=== PATIENT | male | born 1975 | race Caucasian/White ===

== ENCOUNTER 2018-04-12 06:18 | Emergency (ER) | payer MEDICAID, OTHER ==
[~2018-04-12] VITALS: Ht 182.9 cm; Wt 97.5 kg
--- NOTE | 2018-04-12 06:44 | EKG ---
[address] [address] Test Date: 2018-04-12 Test Time: 06:23:02 Pat Name: TERRI DENISE Department: Room: Gender: M [employer]: : 1975 Requested By: CHONG WATSON Order Number: [id number] Reading MD: Measurements Intervals Harper Rate: 60 P: 58 MA: 174 QRS: 16 QRSD: 94 T: 32 QT: 392 QTc: 396 Interpretive Statements SINUS RHYTHM QRS(T) CONTOUR ABNORMALITY CONSIDER INFERIOR MYOCARDIAL DAMAGE POSSIBLY ABNORMAL ECG RI6.01 Unconfirmed report No previous ECG available for comparison
[2018-04-12] MEDS ORDERED: ONDANSETRON PF 4 MG/2 ML VIAL. IV ONE (06:45)
[2018-04-12] MEDS ORDERED: LORazepam 2 MG/ML VIAL IV ONE ×2 (06:45→07:45)
[2018-04-12 06:50] LABS: BASO # 0.1 x10^3/uL (0.0-0.2); BASO % 1 % (0-3); EOS # 0.2 x10^3/uL (0.0-0.7); EOS % 3 % (0-3); HEMATOCRIT 47.7 % (39.0-53.0); HEMOGLOBIN 16.6 g/dL (13.0-17.5); LYMPH # 1.3 x10^3/uL (1.0-4.8); LYMPH % 23 % (24-48); MEAN CORPUSCULAR HEMOGLOBIN 30 pg (25-35); MEAN CORPUSCULAR HGB CONC 35 g/dL (31-37); MEAN CORPUSCULAR VOLUME 87 fL (79-100); MONO # 0.6 x10^3/uL (0.0-1.1); MONO % 11 % (0-9); NEUT # 3.6 x10^3uL (1.8-7.7); NEUT % 63 % (31-73); PLATELET COUNT 216 x10^3/uL (140-400); RED BLOOD COUNT 5.48 x10^6/uL (4.30-5.70); RED CELL DISTRIBUTION WIDTH 13.5 % (11.5-14.5); WHITE BLOOD COUNT 5.7 x10^3/uL (4.0-11.0)
[2018-04-12 06:58] LABS: ALBUMIN 3.8 g/dL (3.4-5.0); ALBUMIN/GLOBULIN RATIO 1.2 (1.0-1.7); CALCIUM 8.6 mg/dL (8.5-10.1); CREATININE 1.1 mg/dL (0.7-1.3); GFR 73.4; POTASSIUM 3.8 mmol/L (3.5-5.1); TOTAL BILIRUBIN 0.9 mg/dL (0.2-1.0); TOTAL PROTEIN 6.9 g/dL (6.4-8.2)
[2018-04-12] MEDS ORDERED: MECLIZINE 12.5 MG TABLET. PO ONE (07:15)
--- NOTE | 2018-04-12 07:37 | RAD ---
CT head without contrast PQRS statement: CT scans at this facility use dose reduction including either automated exposure control, iterative reconstructions, and /or weight based radiation dosing via mA and kV modification when appropriate to reduce radiation dose to as low as reasonably achievable. HISTORY: Dizziness, weakness, lower extremity pain. TECHNIQUE: [address] imaging skull base to vertex. FINDINGS: No intracranial hemorrhage, mass, hydrocephalus, extra-axial fluid collections or infarction. No acute ischemic change. Imaged orbits, mastoids, paranasal sinuses and bones are unremarkable. IMPRESSION: No acute intracranial CT abnormality. Electronically signed by: Kory Hamilton MD (04/12/2018 7:33 AM) [facility]
--- NOTE | 2018-04-12 08:18 | RAD ---
CHEST AP ONLY History: PCXR for chest pain, weakness, dizziness, vomiting, lower extremity pain since waking this morning. Comparison: None Cardiomediastinal silhouette: Mildly prominent in transverse diameter, although portable technique may accentuate this finding. Lungs: No focal airspace consolidation. Pleura: No evidence of pleural effusion. Pneumothorax: None visualized Support Devices: None. Impression: No acute infiltrate. Cardiomediastinal silhouette borderline widened, could be accentuated by the portable technique, versus mild cardiomegaly or pericardial effusion. Electronically signed by: Ronni Salinas MD (04/12/2018 8:14 AM) [facility]
[2018-04-12] MEDS ORDERED: LORA-254 PO (08:36)
[2018-04-12] MEDS ORDERED: ONDA4TAB7 PO (08:36)
[2018-04-12 08:56] VITALS: BP 120/74
--- NOTE | 2018-04-12 11:25 | ED.ADGEN ---
Past History Past Medical History: Depression Alcohol Use: None Drug Use: None Adult General Chief Complaint Chief Complaint Dizziness HPI HPI Patient is a 2-year-old male with cute onset dizziness described as room spinning starting shortly after waking this morning. Patient reports ataxia facets of emesis. Dizziness is worse with position change and head movement and is improved when lying supine. Denies prior history ago. No recent upper respiratory tract symptoms. No headache, neck pain, focal extremity weakness or loss of sensation. Due hearing or tinnitus. Does report some she with some chest tightness but denies chest pain, palpitations, shortness of breath fevers chills or sweats. No other acute symptoms or complaints. [] Review of Systems Review of Systems Review of symptoms as per history of present illness. All other review symptoms are negative. All other systems were reviewed and found to be within normal limits, except as documented in this note. Current Medications Current Medications Current Medications Medications (Trade) Dose Ordered Sig/Cutr Start Time Stop Time Status Last Admin Dose Admin Lorazepam (Ativan) 1 mg 1X ONCE 04/12/18 07:45 04/12/18 07:54 DC 04/12/18 08:03 1 MG Meclizine HCl (Antivert) 25 mg 1X ONCE 04/12/18 07:15 04/12/18 07:16 DC 04/12/18 07:11 25 MG Ondansetron HCl (Zofran) 4 mg 1X ONCE 04/12/18 06:45 04/12/18 06:46 DC 04/12/18 06:43 4 MG Allergies Allergies Allergies Coded Allergies Type Severity Reaction Last Updated Verified No Known Drug Allergies 04/12/18 No Physical Exam Physical Exam Constitutional: Well developed, well nourished, no acute distress, non-toxic appearance. [] HENT: Normocephalic, atraumatic, bilateral external ears normal, oropharynx moist, no oral exudates, nose normal. [] Eyes: PERRLA, EOMI, conjunctiva normal, no discharge. Horizontal nystagmus, fatigues on exam. [] Neck: Normal range of motion, no tenderness, supple, no stridor. [] Cardiovascular:Heart rate regular rhythm, no murmur [] Lungs & Thorax: Bilateral breath sounds clear to auscultation [] Abdomen: Bowel sounds normal, soft, no tenderness. [] Skin: Warm, dry. [] Back: No tenderness. [] Extremities: No tenderness. [] Neurologic: Alert and oriented X 3, normal motor function, normal sensory function, no focal deficits noted. [] Psychologic: Affect normal, judgement normal, mood normal. [] Current Patient Data Vital Signs Vital Signs Date Time Temp Pulse Resp B/P (MAP) Pulse Ox O2 Delivery O2 Flow Rate FiO2 04/12/18 08:56 66 19 120/74 (89) 96 Room Air 04/12/18 06:22 97.4 Lab Results Laboratory Tests Test 04/12/18 06:25 White Blood Count 5.7 x10^3/uL (4.0-11.0) Red Blood Count 5.48 x10^6/uL (4.30-5.70) Hemoglobin 16.6 g/dL (13.0-17.5) Hematocrit 47.7 % (39.0-53.0) Mean Corpuscular Volume 87 fL (79-100) Mean Corpuscular Hemoglobin 30 pg (25-35) Mean Corpuscular Hemoglobin Concent 35 g/dL (31-37) Red Cell Distribution Width 13.5 % (11.5-14.5) Platelet Count 216 x10^3/uL (140-400) Neutrophils (%) (Auto) 63 % (31-73) Lymphocytes (%) (Auto) 23 % (24-48) L Monocytes (%) (Auto) 11 % (0-9) H Eosinophils (%) (Auto) 3 % (0-3) Basophils (%) (Auto) 1 % (0-3) Neutrophils # (Auto) 3.6 x10^3uL (1.8-7.7) Lymphocytes # (Auto) 1.3 x10^3/uL (1.0-4.8) Monocytes # (Auto) 0.6 x10^3/uL (0.0-1.1) Eosinophils # (Auto) 0.2 x10^3/uL (0.0-0.7) Basophils # (Auto) 0.1 x10^3/uL (0.0-0.2) Sodium Level 144 mmol/L (136-145) Potassium Level 3.8 mmol/L (3.5-5.1) Chloride Level 106 mmol/L (98-107) Carbon Dioxide Level 28 mmol/L (21-32) Anion Gap 10 (6-14) Blood Urea Nitrogen 13 mg/dL (8-26) Creatinine 1.1 mg/dL (0.7-1.3) Estimated GFR (Cockcroft-Gault) 73.4 BUN/Creatinine Ratio 12 (6-20) Glucose Level 123 mg/dL (70-99) H Calcium Level 8.6 mg/dL (8.5-10.1) Total Bilirubin 0.9 mg/dL (0.2-1.0) Aspartate Amino Transferase (AST) 21 U/L (15-37) Alanine Aminotransferase (ALT) 31 U/L (16-63) Alkaline Phosphatase 48 U/L (46-116) Troponin I Quantitative < 0.017 ng/mL (0-0.055) Total Protein 6.9 g/dL (6.4-8.2) Albumin 3.8 g/dL (3.4-5.0) Albumin/Globulin Ratio 1.2 (1.0-1.7) EKG EKG [EKG reviewed] Radiology/Procedures Radiology/Procedures [CT Head: No acute disease per radiology report] Course & Med Decision Making Course & Med Decision Making Pertinent Labs and Imaging studies reviewed. (See chart for details) [Repeat Ativan, meclizine, Zofran given with significant symptomatic improvement. Patient's workup is negative. Symptoms consistent with peripheral vertigo. He feels is comfortable returning home.] Final Impression Final Impression [1. Vertigo] Dragon Disclaimer Dragon Disclaimer This electronic medical record was generated, in whole or in part, using a voice recognition dictation system. CHONG WATSON DO Apr 12, 2018 11:25
== END 2018-04-12 08:50 | disposition home or self-care (01) ==
LOC: ER 06:18
DX: R42 Dizziness and giddiness (principal); R11.11 Vomiting without nausea; F32.9 Major depressive disorder, single episode, unspecified
CPT/HCPCS: 36415; 70450; 71045; 80053; 84484; 85025; 93005; 96374; 96375; 96376; 99284; J2060; J2405; J8597

== ENCOUNTER 2018-06-24 13:00 | Emergency (ER) | payer OTHER ==
[~2018-06-24] VITALS: Ht 182.9 cm; Wt 101.0 kg
[~2018-06-24 13:00] MED LIST: LORA-254 PO; ONDA4TAB7 PO
[2018-06-24 13:09] VITALS: BP 141/88
[2018-06-24] MEDS ORDERED: ERYT1OIN6 OP (14:03)
[2018-06-24] MEDS ORDERED: AMOX500T PO (14:03)
[2018-06-24] MEDS ORDERED: TRAM50TA PO (14:03)
[2018-06-24] MEDS ORDERED: HYDR25TA PO (14:03)
--- NOTE | 2018-06-24 14:03 | PHYS DOC ---
Past History Past Medical History: Depression Past Surgical History: No Surgical History Alcohol Use: None Drug Use: None Adult General Chief Complaint Chief Complaint: EYE PROBLEMS HPI HPI Patient is a 42-year-old male presents with left ear and jaw pain for the past 10 days, and left greater than right irritation that his been getting worse over the past 5 days. Patient denies any change in vision. Denies any drainage from the eye. Denies any nausea, vomiting, diarrhea. Denies any drainage from the ear. No significant relief with Benadryl.[] Review of Systems Review of Systems Constitutional: Denies fever or chills [] Eyes: See history of present illness[] HENT: Denies nasal congestion or sore throat [] Respiratory: Denies cough or shortness of breath [] Cardiovascular: No chest pain or palpitations[] GI: Denies abdominal pain, nausea, vomiting, bloody stools or diarrhea [] : Denies dysuria or hematuria [] Musculoskeletal: Denies back pain or joint pain [] Integument: Denies rash or skin lesions [] Neurologic: Denies headache, focal weakness or sensory changes [] Endocrine: Denies polyuria or polydipsia [] All other systems were reviewed and found to be within normal limits, except as documented in this note. Allergies Allergies Allergies Coded Allergies Type Severity Reaction Last Updated Verified No Known Drug Allergies 04/12/18 No Physical Exam Physical Exam Constitutional: Well developed, well nourished, no acute distress, non-toxic appearance. [] HENT: Normocephalic, atraumatic, bilateral external ears normal, left TM has decreased movement with insufflation, oropharynx moist, no oral exudates, nose normal. [] Eyes: PERRLA, EOMI, conjunctiva injected on the left greater than the right with limbic sparing, no discharge. Normal fundus, visual acuity performed with bedside card was 20/20 OS, 20/20 OD, 20/20 both eyes [] Neck: Normal range of motion, no tenderness, supple, no stridor. No cervical lymphadenopathy[] Cardiovascular:Heart rate regular rhythm, no murmur [] Lungs & Thorax: Bilateral breath sounds clear to auscultation [] Abdomen: Bowel sounds normal, soft, no tenderness, no masses, no pulsatile masses. No hepato-or splenomegaly [] Skin: Warm, dry, no erythema, no rash. [] Back: No tenderness, no CVA tenderness. [] Extremities: No tenderness, no cyanosis, no clubbing, ROM intact, no edema. [] Neurologic: Alert and oriented X 3, normal motor function, normal sensory function, no focal deficits noted. [] Psychologic: Affect normal, judgement normal, mood normal. [] Current Patient Data Vital Signs Vital Signs Date Time Temp Pulse Resp B/P (MAP) Pulse Ox O2 Delivery O2 Flow Rate FiO2 06/24/18 13:09 98.6 63 18 100 Room Air EKG EKG [] Radiology/Procedures Radiology/Procedures [] Course & Med Decision Making Course & Med Decision Making Pertinent Labs and Imaging studies reviewed. (See chart for details) [place] decision making: No evidence of meningitis, encephalitis, mastoiditis, no angle closure glaucoma, no hordeolum, no acute visual changes.[] Dragon Disclaimer Dragon Disclaimer This electronic medical record was generated, in whole or in part, using a voice recognition dictation system. Departure Departure: Impression: Primary Impression: Left otitis media Additional Impression: Conjunctivitis Disposition: 01 HOME, SELF-CARE Condition: IMPROVED Referrals: PCP,UNKNOWN (PCP) Patient Instructions: Conjunctivitis (Viral and Bacterial), Otitis Media, Adult Additional Instructions: Follow-up with your regular doctor in 2 days. If you do not have regular doctor list of local clinics will be provided for you. Return to the ER if worsening pain, difficulty seeing, or any other concerns. Scripts Tramadol Hcl (TRAMADOL HCL) 50 Mg Tablet 50 MG PO PRN Q6HRS PRN for PAIN, #20 TAB Prov: OLIMPIA BRITT DO 06/24/18 Erythromycin Base (Erythromycin) 1 Gm Oint...g. 1 APPLIC OP Q4HRS W/A for conjunctivitis for 5 Days, MISC Prov: OLIMPIA BRITT DO 06/24/18 Hydroxyzine Hcl (HYDROXYZINE HCL) 25 Mg Tablet 1 TAB PO TID for allergic reaction, #30 TAB Prov: OLIMPIA BRITT DO 06/24/18 Amoxicillin (AMOXICILLIN) 500 Mg Tablet 1 TAB PO TID for otitis media, #30 TAB Prov: OLIMPIA BRITT DO 06/24/18 Problem Qualifiers Primary Impression: Left otitis media Otitis media type: unspecified Qualified Codes: H66.92 - Otitis media, unspecified, left ear Additional Impression: Conjunctivitis Conjunctivitis type: unspecified Laterality: bilateral Qualified Codes: H10.9 - Unspecified conjunctivitis OLIMPIA BRITT DO Jun 24, 2018 14:03
== END 2018-06-24 14:18 | disposition home or self-care (01) ==
LOC: ER 13:00
DX: H66.92 Otitis media, unspecified, left ear (principal); H10.9 Unspecified conjunctivitis; F32.9 Major depressive disorder, single episode, unspecified
CPT/HCPCS: 99283

== ENCOUNTER 2018-07-06 09:41 | Emergency (ER) | payer OTHER ==
[~2018-07-06] VITALS: Ht 180.3 cm; Wt 88.5 kg
[~2018-07-06 09:41] MED LIST changes: +AMOX500T PO; +ERYT1OIN6 OP; +HYDR25TA PO; +TRAM50TA PO
[2018-07-06] MEDS: IV NORMAL SALINE 1,000ML 1,000 ML IV ONE (10:05)
[2018-07-06] MEDS: ONDANSETRON PF 4 MG/2 ML VIAL. IV ONE (10:06)
[2018-07-06 10:09] LABS: BASO % 0 % (0-3); EOS # 0.4 x10^3/uL (0.0-0.7); EOS % 5 % (0-3); HEMATOCRIT 46.1 % (39.0-53.0); HEMOGLOBIN 15.8 g/dL (13.0-17.5); LYMPH # 1.1 x10^3/uL (1.0-4.8); LYMPH % 12 % (24-48); MEAN CORPUSCULAR HEMOGLOBIN 30 pg (25-35); MEAN CORPUSCULAR HGB CONC 34 g/dL (31-37); MEAN CORPUSCULAR VOLUME 88 fL (79-100); MONO # 0.8 x10^3/uL (0.0-1.1); MONO % 9 % (0-9); NEUT # 6.8 x10^3uL (1.8-7.7); NEUT % 74 % (31-73); PLATELET COUNT 259 x10^3/uL (140-400); RED BLOOD COUNT 5.24 x10^6/uL (4.30-5.70); RED CELL DISTRIBUTION WIDTH 13.6 % (11.5-14.5); WHITE BLOOD COUNT 9.1 x10^3/uL (4.0-11.0)
[2018-07-06 10:23] LABS: ALBUMIN/GLOBULIN RATIO 1.4 (1.0-1.7); CALCIUM 9.2 mg/dL (8.5-10.1); CREATININE 1.2 mg/dL (0.7-1.3); GFR 66.4; POTASSIUM 3.6 mmol/L (3.5-5.1); TOTAL BILIRUBIN 0.8 mg/dL (0.2-1.0); TOTAL PROTEIN 6.8 g/dL (6.4-8.2)
--- NOTE | 2018-07-06 10:54 | RAD ---
CHEST AP ONLY History: Agitation, Cocaine use, palpatations
Comparison: April 12, 2018. Heart size not enlarged. No evidence of pneumothorax, pleural effusion or airspace consolidation. Small dense nodule left upper lobe compatible with granuloma again seen. IMPRESSION: No acute infiltrate. Electronically signed by: Ronni Salinas MD (07/06/2018 10:51 AM) [facility]
--- NOTE | 2018-07-06 10:58 | PHYS DOC ---
Past History Past Medical History: Anxiety, Depression, Other Past Surgical History: Other Alcohol Use: None Drug Use: None Social History Narrative: HX OF COCAINE USE Adult General Chief Complaint Chief Complaint: ANXIETY/PANIC ATTACK HPI HPI 42-year-old male presents via EMS with anxiety due to drug use. Patient has a long-standing drug history. He was clean for 2 years and then decided to start doing cocaine again 2 days ago. His last dose was 3 AM this morning. The patient started have central chest pain and felt well overall. He thought he was dying they called EMS. Remainder review, the patient denies chest pain at this time. He states that he is feeling much better. He admits to being quite anxious and restless but knows this is probably the drugs. He denies trauma or injuries. He denies fever or chills. Review of Systems Review of Systems Constitutional: Denies fever or chills [] Eyes: Denies change in visual acuity, redness, or eye pain [] HENT: Denies nasal congestion or sore throat [] Respiratory: Denies cough or shortness of breath [] Cardiovascular: No additional information not addressed in HPI [] GI: Denies abdominal pain, nausea, vomiting, bloody stools or diarrhea [] : Denies dysuria or hematuria [] Musculoskeletal: Denies back pain or joint pain [] Integument: Denies rash or skin lesions [] Neurologic: Denies headache, focal weakness or sensory changes [] Endocrine: Denies polyuria or polydipsia [] All other systems were reviewed and found to be within normal limits, except as documented in this note. Current Medications Current Medications Current Medications Medications (Trade) Dose Ordered Sig/Curt Start Time Stop Time Status Last Admin Dose Admin Ondansetron HCl (Zofran) 4 mg 1X ONCE 07/06/18 10:15 07/06/18 10:16 DC 07/06/18 10:06 4 MG Sodium Chloride 1,000 ml @ 1,000 mls/hr 1X ONCE 07/06/18 10:00 07/06/18 10:59 07/06/18 10:05 1,000 MLS/HR Allergies Allergies Allergies Coded Allergies Type Severity Reaction Last Updated Verified No Known Drug Allergies 04/12/18 No Physical Exam Physical Exam Constitutional: Well developed, well nourished, no acute distress, non-toxic appearance. [] HENT: Normocephalic, atraumatic, bilateral external ears normal, oropharynx moist, no oral exudates, nose normal. [] Eyes: PERRLA, EOMI, conjunctiva normal, no discharge. [] Neck: Normal range of motion, no tenderness, supple, no stridor. [] Cardiovascular:Heart rate regular rhythm, no murmur [] Lungs & Thorax: Bilateral breath sounds clear to auscultation [] Abdomen: Bowel sounds normal, soft, no tenderness, no masses, no pulsatile masses. [] Skin: Warm, dry, no erythema, no rash. [] Back: No tenderness, no CVA tenderness. [] Extremities: No tenderness, no cyanosis, no clubbing, ROM intact, no edema. [] Neurologic: Alert and oriented X 3, normal motor function, normal sensory function, no focal deficits noted. [] Psychologic: Affect restless, judgement normal, mood anxious. [] Current Patient Data Vital Signs Vital Signs Date Time Temp Pulse Resp B/P (MAP) Pulse Ox O2 Delivery O2 Flow Rate FiO2 07/06/18 10:18 78 21 123/55 (77) 92 Room Air 07/06/18 09:55 98.2 Lab Results Laboratory Tests Test 07/06/18 09:56 White Blood Count 9.1 x10^3/uL (4.0-11.0) Red Blood Count 5.24 x10^6/uL (4.30-5.70) Hemoglobin 15.8 g/dL (13.0-17.5) Hematocrit 46.1 % (39.0-53.0) Mean Corpuscular Volume 88 fL (79-100) Mean Corpuscular Hemoglobin 30 pg (25-35) Mean Corpuscular Hemoglobin Concent 34 g/dL (31-37) Red Cell Distribution Width 13.6 % (11.5-14.5) Platelet Count 259 x10^3/uL (140-400) Neutrophils (%) (Auto) 74 % (31-73) H Lymphocytes (%) (Auto) 12 % (24-48) L Monocytes (%) (Auto) 9 % (0-9) Eosinophils (%) (Auto) 5 % (0-3) H Basophils (%) (Auto) 0 % (0-3) Neutrophils # (Auto) 6.8 x10^3uL (1.8-7.7) Lymphocytes # (Auto) 1.1 x10^3/uL (1.0-4.8) Monocytes # (Auto) 0.8 x10^3/uL (0.0-1.1) Eosinophils # (Auto) 0.4 x10^3/uL (0.0-0.7) Basophils # (Auto) 0.0 x10^3/uL (0.0-0.2) Sodium Level 143 mmol/L (136-145) Potassium Level 3.6 mmol/L (3.5-5.1) Chloride Level 105 mmol/L (98-107) Carbon Dioxide Level 27 mmol/L (21-32) Anion Gap 11 (6-14) Blood Urea Nitrogen 19 mg/dL (8-26) Creatinine 1.2 mg/dL (0.7-1.3) Estimated GFR (Cockcroft-Gault) 66.4 BUN/Creatinine Ratio 16 (6-20) Glucose Level 90 mg/dL (70-99) Calcium Level 9.2 mg/dL (8.5-10.1) Total Bilirubin 0.8 mg/dL (0.2-1.0) Aspartate Amino Transferase (AST) 18 U/L (15-37) Alanine Aminotransferase (ALT) 18 U/L (16-63) Alkaline Phosphatase 58 U/L (46-116) Troponin I Quantitative < 0.017 ng/mL (0-0.055) Total Protein 6.8 g/dL (6.4-8.2) Albumin 4.0 g/dL (3.4-5.0) Albumin/Globulin Ratio 1.4 (1.0-1.7) EKG EKG Sinus rhythm, rate 71, normal axis, no ST elevations or depressions, moderate artifacts.[] Radiology/Procedures Radiology/Procedures [] Impressions: CHEST AP ONLY History: Agitation, Cocaine use, palpatations
Comparison: April 12, 2018. Heart size not enlarged. No evidence of pneumothorax, pleural effusion or airspace consolidation. Small dense nodule left upper lobe compatible with granuloma again seen. IMPRESSION: No acute infiltrate. Electronically signed by: Ronni Salinas MD (07/06/2018 10:51 AM) [facility] DICTATED AND SIGNED BY: RONNI SALINAS MD DATE: 07/06/18 1043 CC: CHONG HOPSON DO; GIANCARLO DANIEL MD Course & Med Decision Making Course & Med Decision Making Pertinent Labs and Imaging studies reviewed. (See chart for details) The patient's EKG is unremarkable. Her troponin is negative. His labs are unremarkable. His urine is negative for infection. Urine drug screen is positive for cocaine. I will give the patient 25 mg of hydroxyzine for his anxiety. He is stable for discharge at this time. [] Dragon Disclaimer Dragon Disclaimer This electronic medical record was generated, in whole or in part, using a voice recognition dictation system. Departure Departure: Impression: Primary Impression: Cocaine abuse Additional Impressions: Depression Anxiety about health Disposition: HOME, SELF-CARE Condition: STABLE Referrals: GIANCARLO DANIEL MD (PCP) Patient Instructions: Cocaine Abuse-Brief, Depression, Adult, [id number] Problem Qualifiers Additional Impressions: Depression Depression Type: major depressive disorder Major depression recurrence: unspecified whether recurrent Active/Remission status: currently active Major depression episode severity: moderate Qualified Codes: F32.1 - Major depressive disorder, single episode, moderate CHNOG HOPSON DO Jul 06, 2018 10:58
--- NOTE | 2018-07-06 12:28 | EKG ---
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
[2018-07-06 12:46] LABS: BARBITURATES NEG (NEG); BENZODIAZEPINES NEG (NEG); CANNABINOIDS NEG (NEG); COCAINE POS (NEG); METHADONE NEG (NEG); OPIATES NEG (NEG); PHENCYCLIDINE NEG (NEG)
[2018-07-06 12:47] LABS: AMPHETAMINE/METHAMPHETAMINE NEG (NEG)
[2018-07-06 12:48] LABS: BACTERIA,URINE 0 /HPF (0-FEW); BILIRUBIN,URINE NEG (NEG); CLARITY,URINE CLEAR; COLOR,URINE AMBER; GLUCOSE,URINE NEG (NEG); NITRITE,URINE NEG (NEG); RBC,URINE 0 /HPF (0-2); SQUAMOUS EPITHELIAL CELL,UR FEW /LPF; UROBILINOGEN,URINE 0.2 mg/dL (0.2 mg/dL); WBC,URINE OCC /HPF (0-4)
[2018-07-06 13:00] VITALS: BP 122/64
[2018-07-06] MEDS: hydrOXYzine HCL 25 MG TABLET PO STA (13:06)
== END 2018-07-06 13:10 | disposition home or self-care (01) ==
LOC: ER 09:41
DX: F14.980 Cocaine use, unspecified with cocaine-induced anxiety disorder (principal); F32.1 Major depressive disorder, single episode, moderate
CPT/HCPCS: 36415; 71045; 80053; 80307; 81001; 84484; 85025; 93005; 96374; 99284; J2405; J7030

== ENCOUNTER 2018-10-09 17:02 | Emergency (ER) | payer OTHER ==
[~2018-10-09] VITALS: Ht 182.9 cm; Wt 99.8 kg
[2018-10-09 17:15] VITALS: BP 121/65
--- NOTE | 2018-10-09 17:46 | PHYS DOC ---
Past History Past Medical History: Depression, Other Past Surgical History: Other Additional Past Surgical Histo: gastric sleeve Smoking: Non-smoker Alcohol Use: None Drug Use: None Adult General Chief Complaint Chief Complaint: FEVER HPI HPI Patient is a 42-year-old male presents complaining of nausea and vomiting 2 days ago. He does not have any current complaints and is able to tolerate oral intake. He is here for medical clearance to be able to return to work. Patient works with cereal. There was no blood in the emesis. No diarrhea. He does have a surgical history significant for gastric sleeve and occasionally gets nausea and vomiting if he eats or drinks too quickly.[] Review of Systems Review of Systems Constitutional: Denies fever or chills [] Eyes: Denies change in visual acuity, redness, or eye pain [] HENT: Denies nasal congestion or sore throat [] Respiratory: Denies cough or shortness of breath [] Cardiovascular: Chest pain or palpitations[] GI: See history of present illness[] : Denies dysuria or hematuria [] Musculoskeletal: Denies back pain or joint pain [] Integument: Denies rash or skin lesions [] Neurologic: Denies headache, focal weakness or sensory changes [] Endocrine: Denies polyuria or polydipsia [] All other systems were reviewed and found to be within normal limits, except as documented in this note. Allergies Allergies Allergies Coded Allergies Type Severity Reaction Last Updated Verified No Known Drug Allergies 04/12/18 No Physical Exam Physical Exam Constitutional: Well developed, well nourished, no acute distress, non-toxic appearance. [] HENT: Normocephalic, atraumatic, bilateral external ears normal, oropharynx moist, no oral exudates, nose normal. [] Eyes: PERRLA, EOMI, conjunctiva normal, no discharge. [] Neck: Normal range of motion, no tenderness, supple, no stridor. [] Cardiovascular:Heart rate regular rhythm, no murmur [] Lungs & Thorax: Bilateral breath sounds clear to auscultation [] Abdomen: Bowel sounds normal, soft, no tenderness, no masses, no pulsatile masses. [] Skin: Warm, dry, no erythema, no rash. [] Back: No tenderness, no CVA tenderness. [] Extremities: No tenderness, no cyanosis, no clubbing, ROM intact, no edema. [] Neurologic: Alert and oriented X 3, normal motor function, normal sensory function, no focal deficits noted. [] Psychologic: Affect normal, judgement normal, mood normal. [] Current Patient Data Vital Signs Vital Signs Date Time Temp Pulse Resp B/P (MAP) Pulse Ox O2 Delivery O2 Flow Rate FiO2 10/09/18 17:15 97.7 76 20 98 Room Air EKG EKG [] Radiology/Procedures Radiology/Procedures [] Course & Med Decision Making Course & Med Decision Making Pertinent Labs and Imaging studies reviewed. (See chart for details) [place] decision making: There is no evidence of active vomiting, no current abdominal pain. Do not think there is any surgical pathology present at this time. Believe that the patient is medically cleared to return to work.[] Dragon Disclaimer Dragon Disclaimer This electronic medical record was generated, in whole or in part, using a voice recognition dictation system. Departure Departure: Impression: Primary Impression: Nausea and vomiting Disposition: HOME, SELF-CARE Condition: IMPROVED Referrals: MACARIO DANIEL (PCP) Patient Instructions: Nausea and Vomiting Additional Instructions: Follow-up with your regular doctor in 2 days. Your medically cleared to return to work. Return to the ER if you have more nausea or vomiting. Or any other concerns. Problem Qualifiers Primary Impression: Nausea and vomiting Vomiting type: unspecified Vomiting Intractability: non-intractable Qualified Codes: R11.2 - Nausea with vomiting, unspecified OLIMPIA BRITT DO Oct 09, 2018 17:46
== END 2018-10-09 17:48 | disposition home or self-care (01) ==
LOC: ER 17:02
DX: R11.2 Nausea with vomiting, unspecified (principal)
CPT/HCPCS: 99281

== ENCOUNTER 2019-12-06 19:44 | Emergency (ER) | payer MEDICAID, OTHER ==
[~2019-12-06] VITALS: Ht 182.9 cm; Wt 98.4 kg
[2019-12-06 20:15] VITALS: BP 148/91
--- NOTE | 2019-12-06 21:09 | PHYS DOC ---
Past History Past Medical History: Anxiety, Depression, Other Past Medical History Hx. of excessive colon polyps- Last Colonscopoic exam 10 yrs. Past Surgical History: Other Additional Past Surgical Histo: gastric sleeve Smoking: Non-smoker Alcohol Use: None Drug Use: None General Adult EDM: Chief Complaint: ABDOMINAL PAIN HPI: HPI: ".. I am been having some Lt side abdomen pain now for the past 2-week... I know I have lots of polyps but I have never had completed my follow-up colonoscopies...I am getting worried tonight..." Patient is a 43 year old male who presents with above hx and complaints of left- sided abdomen pain. Patient reportedly has known history of multiple polyps in his colon. Has not done follow-up with colonoscopy exam in over 10 years. Patient denies any dark or tarry stools. Patient denies any trauma. Patient denies any severe ill contacts. No recent travel. No history of immunosuppression. Patient only follows with Dr. Delgado. Patient denies any intake of bad food recently. Pain is somewhat located in left flank. Patient has some subjective history of constipation. Patient is also has in the past episodes of intermittent episodes of constipation and diarrhea felt to be IBS. Review of Systems: Review of Systems: Constitutional: Denies fever or chills Eyes: Denies change in visual acuity HENT: Denies nasal congestion or sore throat Respiratory: Denies cough or shortness of breath Cardiovascular: Denies chest pain or edema GI: Complaints of Lt mid abdominal pain. Hx.some constipation. Pt. denies nausea, vomiting, bloody stools or diarrhea : Denies dysuria Musculoskeletal: Denies back pain or joint pain Integument: Denies rash Neurologic: Denies headache, focal weakness or sensory changes Endocrine: Denies polyuria or polydipsia Lymphatic: Denies swollen glands Psychiatric: Denies depression or anxiety Heart Score: Risk Factors: Risk Factors: DM, Current or recent (<one month) smoker, HTN, HLP, family history of CAD, obesity. Risk Scores: Score 0 - 3: 2.5% MACE over next 6 weeks - Discharge Home Score 4 - 6: 20.3% MACE over next 6 weeks - Admit for Clinical Observation Score 7 - 10: 72.7% MACE over next 6 weeks - Early Invasive Strategies Family History: Family History: Noncontributory to presentation Current Medications: Current Meds: See nursing for home meds Allergies: Allergies: Allergies Coded Allergies Type Severity Reaction Last Updated Verified No Known Drug Allergies 04/12/18 No Physical Exam: PE: Constitutional: Moderate acute distress, non-toxic appearance. [] HENT: Normocephalic, atraumatic, bilateral external ears normal, oropharynx moist, no oral exudates, nose normal. [] Eyes: PERRLA, EOMI, conjunctiva normal, no discharge. [] Neck: Normal range of motion, no tenderness, supple, no stridor. [] Cardiovascular:Heart rate regular rhythm, no murmur [] Lungs & Thorax: Bilateral breath sounds clear to auscultation [] Abdomen: Bowel sounds normal, soft, some left mid abdomen and flank tenderness, no masses, no pulsatile masses. Distended. Mild rebound to left mid abdomen Skin: Warm, dry, no erythema, no rash. [] Back: No tenderness, no CVA tenderness. [] Extremities: No tenderness, no cyanosis, no clubbing, ROM intact, no edema. [] No psoas sign. Neurologic: Alert and oriented X 3, normal motor function, normal sensory function, no focal deficits noted. [] Psychologic: Affect anxious, judgement normal, mood normal. [] Current Patient Data: Vital Signs: Vital Signs Date Time Temp Pulse Resp B/P (MAP) Pulse Ox O2 Delivery O2 Flow Rate FiO2 12/06/19 20:15 97.8 75 14 148/91 (110) 98 Room Air EKG: EKG: [] Radiology/Procedures: Radiology/Procedures: [address] [address] IMAGING REPORT Signed PATIENT: TERRI DENISE ACCOUNT: [id number] : 1975 LOCATION: ER AGE: 43 SEX: M EXAM STATUS: REG ER ORD. PHYSICIAN: ASIM ASTORGA MD REASON: Abdomen pain, nv, hx. polyps, gastric sleeve PROCEDURE: CT ABD PELV W/ORAL&IV CONTRAST Exam: CT of abdomen and pelvis with contrast INDICATION: Abdominal pain TECHNIQUE: Sequential axial images through the abdomen and pelvis obtained following the administration of 73 mL of Isovue-370 IV contrast. Sagittal and coronal reformatted images were reconstructed from the axial data and reviewed. Comparisons: None FINDINGS: Heart size is normal. No pericardial effusion. Visualized lung bases are clear. No pleural effusion. Liver, spleen, pancreas, gallbladder and adrenals are unremarkable. No perinephric inflammation or hydronephrosis. No renal or ureteral calculi are identified. Bladder is distended and appears thin-walled. Prostate is not enlarged. Post surgical changes at the stomach. Diverticulosis of the sigmoid colon. Large and small bowel are unremarkable. Appendix is nonidentified. No free abdominal air or fluid. No obstruction. Abdominal aorta has a normal course and caliber. Abdominal vasculature is patent. No enlarged abdominal lymph nodes are identified. No suspicious osseous lesions or acute fractures. IMPRESSION: 1. No acute process identified within the abdomen or pelvis. 2. Diverticulosis without evidence of acute diverticulitis. Exposure: One or more of the following in the visualized dose reduction techniques were utilized for this examination: 1. Automated exposure control 2. Adjustment of the MA and/or KV according to patient size 3. Use of iterative of reconstructive technique Electronically signed by: Pati Cho MD (12/06/2019 11:19 PM) [id number] DICTATED AND SIGNED BY: PATI CHO MD DATE: 12/06/19 [id number] CC: ASIM ASTORGA MD; AYLIN DELGADO MD ~ [] IMAGING REPORT Signed PATIENT: TRERI DENISE ACCOUNT: [id number] : 1975 LOCATION: ER AGE: 43 SEX: M EXAM STATUS: REG ER ORD. PHYSICIAN: ASIM ASTORGA MD REASON: Abdomen pain, nausea, vomiting. Hx: Colon polyps PROCEDURE: ACUTE ABDOMEN SERIES Exam: Acute abdominal series INDICATION: Abdominal pain, nausea and vomiting TECHNIQUE: Frontal view of chest with upright and supine views the abdomen Comparisons: None FINDINGS: The cardiomediastinal silhouette and pulmonary vessels are within normal limits. The lung and pleural spaces are clear. Air and stool are noted throughout the colon to level the rectum in a nonobstructive bowel gas pattern. No suspicious masses or calcifications. Visualized osseous structures are unremarkable. IMPRESSION: 1. No acute cardiopulmonary process. 2. Nonobstructive bowel gas pattern. Electronically signed by: Pati Cho MD (12/06/2019 10:01 PM) [id number] DICTATED AND SIGNED BY: PATI CHO MD DATE: 12/06/192200 CC: ASIM ASTORGA MD; AYLIN DELGADO MD ~ Course & Med Decision Making: Course & Med Decision Making Pertinent Labs and Imaging studies reviewed. (See chart for details) Patient strongly encouraged to follow-up with Dr. Delgado. Patient strongly encouraged to complete his recommended colonoscopies. Patient remain on clear fluid diet for the next [address] showed no acute surgical issues but there is suggestion of diverticuli. We will do a course of treatment with Flagyl and Cipro in the event of possible diverticulitis. Patient have reexam if no improvement after 2 days of clear fluids. Must follow-up. Impression: 1. Left mid abdomen pain 2. Constipation 3. Diverticuli 4. History of multiple polyps in colon [] Dragon Disclaimer: Dragon Disclaimer: This electronic medical record was generated, in whole or in part, using a voice recognition dictation system. Departure Departure: Disposition: HOME/RESIDENCE PRIOR TO ADM Condition: STABLE Referrals: AYLIN DELGADO MD (PCP) Scripts Ciprofloxacin (CIPRO) 500 Mg/5 Ml Cristina.mc.rec 500 MG PO BID for diverticul for 5 Days, MISC Prov: ASIM ASTORGA MD 12/07/19 Metronidazole (FLAGYL) 500 Mg Tablet 500 MG PO TID for abdomen pain, diverticuli for 10 Days, #30 TAB Prov: ASIM ASTORGA MD 12/07/19 Justification of Admission: Justification of Admission: Justification of Admission Dx: N/A Dragon Disclaimer This chart was dictated in whole or in part using Voice Recognition software in a busy, high-work load, and often noisy Emergency Department environment. It may contain unintended and wholly unrecognized errors or omissions. Dragon Disclaimer This chart was dictated in whole or in part using Voice Recognition software in a busy, high-work load, and often noisy Emergency Department environment. It may contain unintended and wholly unrecognized errors or omissions. ASIM ASTORGA MD Dec 06, 2019 21:09
[2019-12-06 21:13] LABS: BASO # 0.1 x10^3/uL (0.0-0.2); BASO % 1 % (0-3); EOS # 0.2 x10^3/uL (0.0-0.7); EOS % 3 % (0-3); HEMATOCRIT 48.3 % (39.0-53.0); HEMOGLOBIN 16.3 g/dL (13.0-17.5); LYMPH # 1.8 x10^3/uL (1.0-4.8); LYMPH % 21 % (24-48); MEAN CORPUSCULAR HEMOGLOBIN 31 pg (25-35); MEAN CORPUSCULAR HGB CONC 34 g/dL (31-37); MEAN CORPUSCULAR VOLUME 91 fL (79-100); MONO # 0.7 x10^3/uL (0.0-1.1); MONO % 8 % (0-9); NEUT # 5.7 x10^3uL (1.8-7.7); NEUT % 67 % (31-73); PLATELET COUNT 280 x10^3/uL (140-400); RED CELL DISTRIBUTION WIDTH 14.7 % (11.5-14.5); WHITE BLOOD COUNT 8.6 x10^3/uL (4.0-11.0)
[2019-12-06] MEDS ORDERED: IV RINGERS SOLUTION,LACTATED 1,000 ML IV ONE (21:15)
[2019-12-06] MEDS ORDERED: KETOROLAC 30 MG/ML VIAL. IVP ONE (21:15)
[2019-12-06] MEDS ORDERED: ONDANSETRON PF 4 MG/2 ML VIAL. IVP ONE (21:15)
[2019-12-06 21:16] LABS: CALCIUM 8.6 mg/dL (8.5-10.1); GFR 81.6; POTASSIUM 4.4 mmol/L (3.5-5.1)
[2019-12-06] MEDS ORDERED: ONDANSETRON PF 4 MG/2 ML VIAL. ONE (21:16)
[2019-12-06] MEDS ORDERED: KETOROLAC 30 MG/ML VIAL. ONE (21:16)
[2019-12-06 21:21] LABS: ALBUMIN 3.5 g/dL (3.4-5.0); DIRECT BILIRUBIN 0.1 mg/dL (0.0-0.2); TOTAL BILIRUBIN 0.4 mg/dL (0.2-1.0)
[2019-12-06 21:27] LABS: BARBITURATES NEG (NEG); BENZODIAZEPINES NEG (NEG); CANNABINOIDS NEG (NEG); COCAINE POS (NEG); METHADONE NEG (NEG); OPIATES NEG (NEG); PHENCYCLIDINE NEG (NEG)
[2019-12-06 21:30] LABS: BACTERIA,URINE 0 /HPF (0-FEW); BILIRUBIN,URINE NEG (NEG); CLARITY,URINE CLEAR; COLOR,URINE YELLOW; GLUCOSE,URINE NEG (NEG); NITRITE,URINE NEG (NEG); RBC,URINE 0 /HPF (0-2); SQUAMOUS EPITHELIAL CELL,UR OCC /LPF; UROBILINOGEN,URINE 0.2 mg/dL (0.2 mg/dL); WBC,URINE OCC /HPF (0-4)
[2019-12-06 21:31] LABS: AMPHETAMINE/METHAMPHETAMINE NEG (NEG)
[2019-12-06] MEDS ORDERED: CONTRAST GIVEN. MC PRN (21:45)
[2019-12-06] MEDS ORDERED: IOHEXOL 300 MG/ML 75 ML VIAL. IV ONE (21:45)
[2019-12-06] MEDS ORDERED: IOHEXOL 240 MG/ML 50ML VIAL. PO ONE (21:45)
--- NOTE | 2019-12-06 22:04 | RAD ---
Exam: Acute abdominal series INDICATION: Abdominal pain, nausea and vomiting TECHNIQUE: Frontal view of chest with upright and supine views the abdomen Comparisons: None FINDINGS: The cardiomediastinal silhouette and pulmonary vessels are within normal limits. The lung and pleural spaces are clear. Air and stool are noted throughout the colon to level the rectum in a nonobstructive bowel gas pattern. No suspicious masses or calcifications. Visualized osseous structures are unremarkable. IMPRESSION: 1. No acute cardiopulmonary process. 2. Nonobstructive bowel gas pattern. Electronically signed by: Pati Asher MD (12/06/2019 10:01 PM) [id number]
--- NOTE | 2019-12-06 23:22 | RAD ---
Exam: CT of abdomen and pelvis with contrast INDICATION: Abdominal pain TECHNIQUE: Sequential axial images through the abdomen and pelvis obtained following the administration of 73 mL of Isovue-370 IV contrast. Sagittal and coronal reformatted images were reconstructed from the axial data and reviewed. Comparisons: None FINDINGS: Heart size is normal. No pericardial effusion. Visualized lung bases are clear. No pleural effusion. Liver, spleen, pancreas, gallbladder and adrenals are unremarkable. No perinephric inflammation or hydronephrosis. No renal or ureteral calculi are identified. Bladder is distended and appears thin-walled. Prostate is not enlarged. Post surgical changes at the stomach. Diverticulosis of the sigmoid colon. Large and small bowel are unremarkable. Appendix is nonidentified. No free abdominal air or fluid. No obstruction. Abdominal aorta has a normal course and caliber. Abdominal vasculature is patent. No enlarged abdominal lymph nodes are identified. No suspicious osseous lesions or acute fractures. IMPRESSION: 1. No acute process identified within the abdomen or pelvis. 2. Diverticulosis without evidence of acute diverticulitis. Exposure: One or more of the following in the visualized dose reduction techniques were utilized for this examination: 1. Automated exposure control 2. Adjustment of the MA and/or KV according to patient size 3. Use of iterative of reconstructive technique Electronically signed by: Pati Asher MD (12/06/2019 11:19 PM) [id number]
[2019-12-07] MEDS ORDERED: CIPR500S2 PO (00:45)
[2019-12-07] MEDS ORDERED: METR500T PO (00:45)
[2019-12-07] MEDS ORDERED: metroNIDAZOLE 500 MG TABLET PO ONE (01:00)
[2019-12-07] MEDS ORDERED: CIPROFLOXACIN HCL 500 MG TABLET PO ONE (01:00)
== END 2019-12-07 01:15 | disposition home or self-care (01) ==
LOC: ER 19:44
DX: K59.00 Constipation, unspecified (principal); K57.90 Diverticulosis of intestine, part unspecified, without perforation or abscess without bleeding
CPT/HCPCS: 36415; 74022; 74177; 80048; 80076; 80307; 81001; 82150; 83690; 85025; 86705; 86709; 86803; 87340; 96361; 96374; 96375; 99285; J1885; J2405; J7120; Q9966; Q9967

== ENCOUNTER 2020-01-21 09:39 | Emergency (ER) | payer MEDICAID ==
[~2020-01-21] VITALS: Ht 182.9 cm; Wt 85.7 kg
[2020-01-21 09:39] VITALS: BP 115/77
[~2020-01-21 09:39] MED LIST changes: +CIPR500S2 PO; +METR500T PO
--- NOTE | 2020-01-21 10:01 | PHYS DOC ---
Past History Past Medical History: Anxiety, Bipolar, Depression Past Surgical History: Other Additional Past Surgical Histo: gastric sleeve Smoking: Non-smoker Alcohol Use: None Drug Use: None General Adult EDM: Chief Complaint: MEDICATION REFILL HPI: HPI: 44-year-old male past medical history significant for bipolar disorder anxiety, presents the ED with complaints of " I do not like how this medication makes me feel." Patient is referring to seroquel 25 mg, that was started a week and a half ago for patient's bipolar disorder, diagnosed by his primary care physician Dr. Delgado. Prior to this was taking paroxetine. Patient also states he has been taking Ambien (not a new medication) and is still unable to sleep due to worsening anxiety. Reports he flushed the medications down the toilet. Was referred to a psychiatrist by his primary care physician. Is awaiting a call back. Denies any suicidal or homicidal ideations. Is requesting new medication for his bipolar disorder-a new/recent diagnosis. Review of Systems: Review of Systems: Constitutional: Denies fever or chills HENT: Denies nasal congestion or sore throat Respiratory: Denies cough or shortness of breath Cardiovascular: Denies chest pain or edema GI: Denies abdominal pain, nausea, vomiting, or diarrhea MSK: Denies tremors, rigidity or stiffness Integument: Denies rash Neurologic: Denies headache, focal weakness or sensory changes Endocrine: Denies polyuria or polydipsia Psychiatric: Denies depression, suicidal or homicidal ideations Heart Score: Risk Factors: Risk Factors: DM, Current or recent (<one month) smoker, HTN, HLP, family history of CAD, obesity. Risk Scores: Score 0 - 3: 2.5% MACE over next 6 weeks - Discharge Home Score 4 - 6: 20.3% MACE over next 6 weeks - Admit for Clinical Observation Score 7 - 10: 72.7% MACE over next 6 weeks - Early Invasive Strategies Allergies: Allergies: Allergies Coded Allergies Type Severity Reaction Last Updated Verified No Known Drug Allergies 04/12/18 No Physical Exam: PE: Constitutional: Well developed, well nourished, no acute distress, non-toxic appearance. [] HENT: Normocephalic, atraumatic, Eyes: EOMI, conjunctiva normal, no discharge. [] Neck: Normal range of motion, supple, Lungs & Thorax: speaking in full sentences, no distress Skin: Warm, dry, no erythema, no rash. [] Extremities: ROM intact, no edema. [] Neurologic: Alert and oriented X 3, normal motor function, normal sensory function, no focal deficits noted. [] Psychologic: Affect normal, judgement normal, anxious and slightly irritable Current Patient Data: Vital Signs: Vital Signs Date Time Temp Pulse Resp B/P (MAP) Pulse Ox O2 Delivery O2 Flow Rate FiO2 01/21/20 09:39 97.9 76 24 115/77 (90) 100 Room Air EKG: EKG: [] Radiology/Procedures: Radiology/Procedures: [] Course & Med Decision Making: Course & Med Decision Making Pertinent Labs and Imaging studies reviewed. (See chart for details) Concern for anxiety and medical adverse effect-seroquel can can tachycardia, insomnia and irritability. Patient appears to be more anxious than depressed or manic. Will prescribe Atarax prn. Patient not suicidal or homicidal or psychotic. Strict ED return precautions for the symptoms were given. Encouraged urgent outpatient follow-up with PMD and psychiatry. Life- threatening processes were considered but are low suspicion at this time, given history and physical exam. Pt was educated on all prescription medications and adverse effects. All patient's questions were answered and pt was stable at time of discharge. Differential includes danger to self or others including suicidal, homicidal or psychotic, life-threatening rash or infection, extrapyramidal syndrome, hypothermia, hyperthermia, anaphylaxis or neuroleptic malignant syndrome I spoken with the patient and her caregivers. I explained the patient's condition, diagnoses and treatment plan based on the information available to me at this time. I have answered the patient and her caregiver's questions and addressed any concerns. The patient and her caregivers have a good understanding of patient's diagnosis, condition and treatment plan as can be expected at this point. Vital signs have been stable. Patient's condition is stable and appropriate for discharge from the emergency department. Patient will pursue further outpatient evaluation with primary care physician or other designated or consulting physician as outlined in the discharge instructions. The patient and/or caregivers are agreeable to this plan of care and follow-up instructions have been explained in detail. The patient and/or caregivers have received these instructions in written form and have expressed an understanding of the discharge instructions. The patient and/or caregivers are aware that any significant change of condition or worsening of symptoms should prompt immediate return to this or the closest emergency department or call to 611. Myrna Disclaimer: Myrna Disclaimer: This electronic medical record was generated, in whole or in part, using a voice recognition dictation system. Departure Departure: Impression: Primary Impression: Medication adverse effect Additional Impression: Anxiety Disposition: HOME/RESIDENCE PRIOR TO ADM Condition: STABLE Referrals: AYLIN DELGADO MD (PCP) Patient Instructions: Anxiety and Panic Attacks, Manic Depression (Bipolar Disorder), Medication Refill, Emergency Department Additional Instructions: FOLLOW UP WITH PSYCHIATRY, Dr. Sang Mayen or Dr. Alireza Haile -call for appointment [phone] EMERGENCY DEPARTMENT GENERAL DISCHARGE INSTRUCTIONS Thank you for coming to [facility] Emergency Department (ED) today and trusting us with you care. We trust that you had a positivie experience in our Emergency Department. If you wish to speak to the department management, you may call the sirector at [phone]. YOUR FOLLOW UP INSTRUCTIONS ARE FOLLOWS: 1. Do you have a private Doctor? If you do not have a private doctir, please ask for a resource list of physicians or clinics that may be able to assist you with follow up care. 2. The Emergency Physicain has interpreted your x-rays. The X-Ray specialist will also review them. If there is a change in the findingd, you will be notified in 48 hours when at all possible. 3. A lab test or culture has been done, your results will be reviewed and you will be notified if you need a change in treatment. ADDITIONAL INSTRUCTIONS AND INFORMATION: 1. Your care today has been supervised by a physician who is specially trained in emergency care. Many problems require more than one evaluation for a complete diagnosis and treatment. We recommend that you schedule your follow up appointment as recommended to ensure complete treatment of you illness or injury. If you are unable to obtain follow up care and continue to have a problem, or if your consition worsens, we recommend that you return to the ED. 2. We are not able to safelymdetermine your condition over the phone nor are we able to give sound medical advice over the phone. For these safety reasons, if you call for medical advice we will ask you to come to the ED for further evaluation. 3. If you have any questions regarding these discharge instructions please call the ED at [phone]. SAFETY INFORMATION: In the interest of safety, wellness, and injury prevention; we encourage you to wear your sealbelt, if you smoke; quite smoking, and we encourage family to use a protective helmet for bicycling and other sporting events that present an increased risk for head injusry. IF YOUR SYMPTOMS WORSEN OR NEW SYMPTOMS DEVELOP, OR YOU HAVE CONCERNS ABOUT YOUR CONDITION; OR IF YOUR CONDITION WORSENS WHILE YOU ARE WAITING FOR YOUR FOLLOW UP APPOINTMENT; EITHER CONTACT YOUR PRIMARY CARE DOCTOR, THE PHYSICIAN WHOSE NAME AND NUMBER YOU WERE GIVEN, OR RETURN TO THE ED IMMEDIATELY. Scripts Hydroxyzine Hcl (HYDROXYZINE HCL) 25 Mg Tablet 1 TAB PO every 6 hours for anxiety MDD 10 tablets for 5 Days, #20 TAB 0 Refills Be careful as this medication may make you mildly tired. I recommend not driving on this medication or operating heavy machinery. Prov: LILIANA YBARRA DO 01/21/20 Justification of Admission: Justification of Admission: Justification of Admission Dx: N/A LILIANA YBARRA DO Jan 21, 2020 10:01
[2020-01-21] MEDS ORDERED: HYDR25TA PO (10:04)
== END 2020-01-21 10:05 | disposition home or self-care (01) ==
LOC: ER 09:39
DX: F41.9 Anxiety disorder, unspecified (principal); T43.595A Adverse effect of other antipsychotics and neuroleptics, initial encounter; F31.9 Bipolar disorder, unspecified; Y92.89 Other specified places as the place of occurrence of the external cause
CPT/HCPCS: 99283

== ENCOUNTER 2020-04-19 12:50 | Emergency (ER) | payer MEDICAID ==
[~2020-04-19] VITALS: Ht 182.9 cm; Wt 85.7 kg
[2020-04-19 13:53] LABS: BASO # 0.1 x10^3/uL (0.0-0.2); BASO % 1 % (0-3); EOS # 0.2 x10^3/uL (0.0-0.7); EOS % 2 % (0-3); HEMATOCRIT 44.3 % (39.0-53.0); LYMPH # 1.6 x10^3/uL (1.0-4.8); LYMPH % 18 % (24-48); MEAN CORPUSCULAR HEMOGLOBIN 30 pg (25-35); MEAN CORPUSCULAR HGB CONC 34 g/dL (31-37); MEAN CORPUSCULAR VOLUME 90 fL (79-100); MONO # 0.9 x10^3/uL (0.0-1.1); MONO % 10 % (0-9); NEUT # 6.5 x10^3uL (1.8-7.7); NEUT % 70 % (31-73); PLATELET COUNT 286 x10^3/uL (140-400); RED BLOOD COUNT 4.93 x10^6/uL (4.30-5.70); RED CELL DISTRIBUTION WIDTH 13.5 % (11.5-14.5); WHITE BLOOD COUNT 9.3 x10^3/uL (4.0-11.0)
--- NOTE | 2020-04-19 14:02 | PHYS DOC ---
Past History Past Medical History: Anxiety, Bipolar, Depression, UTI, Other Additional Past Medical Histor: PTSD (GENTRY KAUR APRN) Past Medical History: Anxiety, Bipolar, Depression, Schizophrenia (ASIM ASTORGA MD) Past Surgical History: Other Additional Past Surgical Histo: gastric sleeve (GENTRY KAUR APRN) Smoking: Non-smoker Alcohol Use: None Drug Use: None (GENTRY KAUR APRN) General Adult EDM: Chief Complaint: PSYCH EVALUATION HPI: HPI: Patient is a 44-year-old male who presents with suicidal ideation. Patient states he has recently been diagnosed with bipolar and PTSD. Patient states that he was just placed on new medications for his bipolar and anxiety and feels like the last couple weeks he has felt much worse. Patient reports he is having a hard time getting out of bed and has recently lost his job because has not been able to show up for work. Patient reports this morning he was having thoughts of harming himself and considered hanging himself. Patient states that he is scared of the thoughts he is having because he does not want to harm himself. Patient is requesting to be placed inpatient somewhere to try and figure out his medications. (GENTRY KAUR APRN) Review of Systems: Review of Systems: Constitutional: Denies fever or chills Eyes: Denies change in visual acuity HENT: Denies nasal congestion or sore throat Respiratory: Denies cough or shortness of breath Cardiovascular: Denies chest pain or edema GI: Denies abdominal pain, nausea, vomiting, bloody stools or diarrhea : Denies dysuria Musculoskeletal: Denies back pain or joint pain Integument: Denies rash Neurologic: Denies headache, focal weakness or sensory changes Endocrine: Denies polyuria or polydipsia Lymphatic: Denies swollen glands Psychiatric: Denies depression or anxiety (GENTRY KAUR APRN) Allergies: Allergies: Allergies Coded Allergies Type Severity Reaction Last Updated Verified No Known Drug Allergies 04/12/18 No (GENTRY KAUR APRN) Physical Exam: PE: Constitutional: Well developed, well nourished, no acute distress, non-toxic appearance. [] HENT: Normocephalic, atraumatic, bilateral external ears normal, oropharynx moist, no oral exudates, nose normal. [] Eyes: PERRLA, EOMI, conjunctiva normal, no discharge. [] Neck: Normal range of motion, no tenderness, supple, no stridor. [] Cardiovascular:Heart rate regular rhythm, no murmur [] Lungs & Thorax: Bilateral breath sounds clear to auscultation [] Abdomen: Bowel sounds normal, soft, no tenderness, no masses, no pulsatile mas ses. [] Skin: Warm, dry, no erythema, no rash. [] Back: No tenderness, no CVA tenderness. [] Extremities: No tenderness, no cyanosis, no clubbing, ROM intact, no edema. [] Neurologic: Alert and oriented X 3, normal motor function, normal sensory function, no focal deficits noted. [] Psychologic: Affect normal, judgement normal, mood normal. [] (GENTRY KAUR APRN) Current Patient Data: Vital Signs: Vital Signs Date Time Temp Pulse Resp B/P (MAP) Pulse Ox O2 Delivery O2 Flow Rate FiO2 04/19/20 13:05 97.8 70 14 136/78 (97) 99 Room Air (GENTRY KAUR APRN) EKG: EKG: Sinus Rhythm, HR 69 BPM, [place] normal, Intervals normal. Otherwise normal EKG (GENTRY KAUR APRN) Radiology/Procedures: Radiology/Procedures: []EXAM: Right foot, 3 views. HISTORY: Foreign body. COMPARISON: None. FINDINGS: 3 views of the right foot are obtained. There is no fracture, dislocation or subluxation. No foreign body is seen. IMPRESSION: No acute osseous finding or foreign body. Electronically signed by: Tamika Cantu MD (04/19/2020 7:56 PM) [facility] (GENTRY KAUR APRN) Heart Score: Risk Factors: Risk Factors: DM, Current or recent (<one month) smoker, HTN, HLP, family history of CAD, obesity. Risk Scores: Score 0 - 3: 2.5% MACE over next 6 weeks - Discharge Home Score 4 - 6: 20.3% MACE over next 6 weeks - Admit for Clinical Observation Score 7 - 10: 72.7% MACE over next 6 weeks - Early Invasive Strategies (GENTRY KAUR APRN) Course & Med Decision Making: Course & Med Decision Making Pertinent Labs and Imaging studies reviewed. (See chart for details) [] (GENTRY KAUR APRN) Course & Med Decision Making See Prior Chart Pt. becoming very agitated. Requesting med to settle down, maybe sleep. Rx Ativan 2 mg and Zyprexia 10 with 50 mg Benadryl. Still awaiting placement 2230 hrs Pt. accepted at [facility]- Dr. Haji. Impression:: 1. Suicidal ideation 2. History of bipolar disorder 3. History of depression 4. Negative COVID-19 (ASIM ASTORGA MD) Dragon Disclaimer: Dragon Disclaimer: This electronic medical record was generated, in whole or in part, using a voice recognition dictation system. (GENTRY KAUR APRN) Departure Departure: Referrals: AYLIN DELGADO MD (PCP) Attending Signature Attending Signature I have reviewed the non-physician practitioner's documentation, personally taken the patient's history, performed an exam and agree with the physical findings, clinical impression, and management plan. (HENRY SCHMIDT DO) Attending Signature I have participated in the care of this patient and I have reviewed and agree with all pertinent clinical information above including history, exam, and r ecommendations. (GENTRY KAUR APRN) Dragon Disclaimer This chart was dictated in whole or in part using Voice Recognition software in a busy, high-work load, and often noisy Emergency Department environment. It may contain unintended and wholly unrecognized errors or omissions. (ASIM ASTORGA MD) GENTRY KAUR APRN Apr 19, 2020 14:02 HENRY SCHMIDT DO Apr 19, 2020 14:14 ASIM ASTORGA MD Apr 19, 2020 22:33
[2020-04-19 14:03] LABS: CALCIUM 8.7 mg/dL (8.5-10.1); GFR 81.2; POTASSIUM 4.2 mmol/L (3.5-5.1)
[2020-04-19 14:07] LABS: SALIC < 2.8 mg/dL (2.8-20.0)
[2020-04-19 14:08] LABS: ACETAMIN < 2.0 mcg/mL (10-30); ETHANOL < 10 mg/dL (0-10)
[2020-04-19 14:09] LABS: ALBUMIN 3.5 g/dL (3.4-5.0); ALBUMIN/GLOBULIN RATIO 1.1 (1.0-1.7); TOTAL BILIRUBIN 0.3 mg/dL (0.2-1.0); TOTAL PROTEIN 6.8 g/dL (6.4-8.2)
[2020-04-19 14:17] LABS: BARBITURATES NEG (NEG); BENZODIAZEPINES NEG (NEG); CANNABINOIDS NEG (NEG); COCAINE NEG (NEG); METHADONE NEG (NEG); OPIATES NEG (NEG); PHENCYCLIDINE NEG (NEG)
[2020-04-19 14:18] LABS: AMPHETAMINE/METHAMPHETAMINE NEG (NEG)
--- NOTE | 2020-04-19 14:31 | EKG ---
[address] [address] Test Date: 2020-04-19 Test Time: 13:37:45 Pat Name: TERRI DENISE Department: Room: Gender: M Leasing Consultant: KELLEY : 1975 Requested By: GENTRY KAUR Order Number: [id number] Reading MD: Measurements Intervals [place] Rate: 69 P: 52 [place]: 162 QRS: 10 QRSD: 88 T: 37 QT: 376 QTc: 404 Interpretive Statements SINUS RHYTHM OTHERWISE NORMAL ECG RI6.02 No previous ECG available for comparison
[2020-04-19] MEDS ORDERED: ACETAMINOPHEN 325 MG TABLET PO ONE (16:30)
--- NOTE | 2020-04-19 19:58 | RAD ---
EXAM: Right foot, 3 views. HISTORY: Foreign body. COMPARISON: None. FINDINGS: 3 views of the right foot are obtained. There is no fracture, dislocation or subluxation. N o foreign body is seen. IMPRESSION: No acute osseous finding or foreign body. Electronically signed by: Tamiak Cantu MD (04/19/2020 7:56 PM) [facility]
[2020-04-19 20:51] VITALS: BP 132/87
[2020-04-19] MEDS ORDERED: diphenhydrAMINE HCL 25 MG CAPSULE PO ONE (22:45)
[2020-04-19] MEDS ORDERED: OLANZapine 2.5 MG TABLET PO ONE (22:45)
[2020-04-19] MEDS ORDERED: LORazepam 1 MG TABLET PO ONE (22:45)
== END 2020-04-19 20:58 | disposition short-term general hospital (02) ==
LOC: ER 12:50
DX: R45.851 Suicidal ideations (principal); F31.9 Bipolar disorder, unspecified; F41.9 Anxiety disorder, unspecified; F43.10 Post-traumatic stress disorder, unspecified; F20.9 Schizophrenia, unspecified; M79.671 Pain in right foot; Z20.828 Contact with and (suspected) exposure to other viral communicable diseases; Z87.440 Personal history of urinary (tract) infections
CPT/HCPCS: 36415; 73630; 80053; 80307; 80329; 83690; 85025; 87426; 93005; 99285; G0480; Q0163; U0003; C9803

== ENCOUNTER 2020-05-27 14:15 | Emergency (ER) | payer MEDICAID ==
[~2020-05-27] VITALS: Ht 182.9 cm; Wt 85.7 kg
[2020-05-27 14:33] VITALS: BP 150/104
--- NOTE | 2020-05-27 14:46 | PHYS DOC ---
Past History Past Medical History: Anxiety, Bipolar, Depression, Schizophrenia Additional Past Medical Histor: PTSD Past Surgical History: Other Additional Past Surgical Histo: gastric sleeve Smoking: Non-smoker Alcohol Use: None Drug Use: None Adult General Chief Complaint Chief Complaint: DENTAL PROBLEM HPI HPI Patient is a 44-year-old male presents emergency department today stating he was chewing on something hard when he broke his right upper rear molar approximately 5 days ago. Patient states he has an appointment this coming Thursday with a dentist to get his tooth fixed. Patient states he has been taking Tylenol and Motrin at home without relief of pain. Patient states his pain is currently a 10/10 on a 1-10 pain scale. Patient denies any fever, chills, shortness of breath, chest pains, sore throat, nasal congestion, chest palpitations. Patient denies any other physical complaints or physical concerns. Review of Systems Review of Systems 14 body systems of review of systems have been reviewed. See HPI for pertinent positives and negative responses, otherwise all other systems are negative, nonpertinent or noncontributory. Allergies Allergies Allergies Coded Allergies Type Severity Reaction Last Updated Verified No Known Drug Allergies 04/12/18 No Physical Exam Physical Exam Constitutional: Well developed, well nourished, no acute distress, non-toxic appearance. HENT: Normocephalic, atraumatic, bilateral external ears normal, oropharynx moist, no oral exudates, nose normal. Poor oral dentition, marked dental caries, fractured right upper most rear molar with pulp exposed. No gum swelling appreciated, no facial swelling, no decreased sensation of the face tongue or oral mucosa. Eyes: PERRLA, EOMI, conjunctiva normal, no discharge. Neck: Normal range of motion, no tenderness, supple, no stridor. Cardiovascular:Heart rate regular rhythm, no murmur Lungs & Thorax: Bilateral breath sounds clear to auscultation Abdomen: Bowel sounds normal, soft, no tenderness, no masses, no pulsatile masses. Skin: Warm, dry, no erythema, no rash. Back: No tenderness, no CVA tenderness. Extremities: No tenderness, no cyanosis, no clubbing, ROM intact, no edema. Neurologic: Alert and oriented X 3, normal motor function, normal sensory function, no focal deficits noted. Psychologic: Affect normal, judgement normal, mood normal. Current Patient Data Vital Signs Vital Signs Date Time Temp Pulse Resp B/P (MAP) Pulse Ox O2 Delivery O2 Flow Rate FiO2 05/27/20 14:33 98.2 65 16 150/104 (119) 100 Room Air EKG EKG [] Radiology/Procedures Radiology/Procedures [] Heart Score Risk Factors: Risk Factors: DM, Current or recent (<one month) smoker, HTN, HLP, family history of CAD, obesity. Risk Scores: Risk Factors: DM, Current or recent (<one month) smoker, HTN, HLP, family history of CAD, obesity. Course & Med Decision Making Course & Med Decision Making Pertinent Labs and Imaging studies reviewed. (See chart for details) 44-year-old male, vital signs reviewed, presents emergency department for a broken tooth. Physical examination revealed marked dental caries with fractured tooth right upper most premolar with pulp exposed. Will give pain medicine 60 mg IM ketorolac, 2 5/325 mg [place], patient has ride waiting in waiting room. Will give prescription for 600 mg Motrin to take as needed 3 times daily for pa in, 875 mg Augmentin twice daily x14 days. Patient gave verbal understanding of discharge home instructions, prescription medication use, follow-up with dentist and keep appointment on this coming Thursday, return to ER precautions and concerns. Dragon Disclaimer Dragon Disclaimer This electronic medical record was generated, in whole or in part, using a voice recognition dictation system. Departure Departure: Impression: Primary Impression: Fractured tooth, traumatic, with complication Additional Impressions: Dental caries Pulpitis Disposition: 01 DC HOME SELF CARE/HOMELESS Condition: GOOD Referrals: AYLIN DELGADO MD (PCP) Patient Instructions: Dental Caries, Dental Fracture Additional Instructions: Please take antibiotics as directed, keep your appointment with your dentist this coming Thursday, return to the emergency department for worsening symptoms or other concerns. EMERGENCY DEPARTMENT GENERAL DISCHARGE INSTRUCTIONS Thank you for coming to [facility] (ED) today and trusting us with you care. We trust that you had a positivie experience in our Emergency Department. If you wish to speak to the department management, you may call the director at [phone]. YOUR FOLLOW UP INSTRUCTIONS ARE FOLLOWS: 1. Do you have a private Doctor? If you do not have a private doctor, please ask for a resource list of physicians or clinics that may be able to assist you with follow up care. 2. The Emergency Physician has interpreted your x-rays. The X-Ray specialist will also review them. If there is a change in the findings, you will be notified in 48 hours when at all possible. 3. A lab test or culture has been done, your results will be reviewed and you will be notified if you need a change in treatment. ADDITIONAL INSTRUCTIONS AND INFORMATION: 1. Your care today has been supervised by a physician who is specially trained in emergency care. Many problems require more than one evaluation for a complete diagnosis and treatment. We recommend that you schedule your follow up appointment as recommended to ensure complete treatment of you illness or injury. If you are unable to obtain follow up care and continue to have a problem, or if your condition worsens, we recommend that you return to the ED. 2. We are not able to safely determine your condition over the phone nor are we able to give sound medical advice over the phone. For these safety reasons, if you call for medical advice we will ask you to come to the ED for further evaluation. 3. If you have any questions regarding these discharge instructions please call the ED at [phone]. SAFETY INFORMATION: In the interest of safety, wellness, and injury prevention; we encourage you to wear your sealbelt, if you smoke; quite smoking, and we encourage family to use a p rotective helmet for bicycling and other sporting events that present an increased risk for head injury. IF YOUR SYMPTOMS WORSEN OR NEW SYMPTOMS DEVELOP, OR YOU HAVE CONCERNS ABOUT YOUR CONDITION; OR IF YOUR CONDITION WORSENS WHILE YOU ARE WAITING FOR YOUR FOLLOW UP APPOINTMENT; EITHER CONTACT YOUR PRIMARY CARE DOCTOR, THE PHYSICIAN WHOSE NAME AND NUMBER YOU WERE GIVEN, OR RETURN TO THE ED IMMEDIATELY. Scripts Ibuprofen (IBUPROFEN) 600 Mg Tablet 600 MG PO TID PRN PRN for PAIN, #30 TAB 0 Refills Prov: ROSARIO CHICAS SECURITY ASSURANCE ANALYST 05/27/20 Amoxicillin/Potassium Clav (AUGMENTIN 875-125 TABLET) 1 Each Tablet 1 TAB PO BID for DENTAL INFECTION for 14 Days, #28 TAB 0 Refills Prov: ROSARIO CHICAS SECURITY ASSURANCE ANALYST 05/27/20 Benzocaine (HURRICAINE) 57 Gm [place] 57 GM MM QIDPRN PRN for DENTAL PAIN, #1 BOTTLE 0 Refills Prov: ROSARIO CHICAS SECURITY ASSURANCE ANALYST 05/27/20 Problem Qualifiers Primary Impression: Fractured tooth, traumatic, with complication Encounter type: initial encounter Fracture type: open Qualified Codes: S02.5XXB - Fracture of tooth (traumatic), initial encounter for open fracture ROSARIO CHICAS SECURITY ASSURANCE ANALYST May 27, 2020 14:46
[2020-05-27] MEDS ORDERED: KETOROLAC 60 MG/2 ML VIAL. IM ONE (15:00)
[2020-05-27] MEDS ORDERED: HYDROcodone/APAP 5/325MG 1 TAB TABLET PO ONE (15:00)
[2020-05-27] MEDS ORDERED: IBUP600T16 PO (15:02)
[2020-05-27] MEDS ORDERED: AMOX1TAB61 PO (15:02)
[2020-05-27] MEDS ORDERED: BENZ57SP MM (15:02)
== END 2020-05-27 15:20 | disposition home or self-care (01) ==
LOC: ER 14:15
DX: S02.5XXB Fracture of tooth (traumatic), initial encounter for open fracture (principal); K02.9 Dental caries, unspecified; K04.01 Reversible pulpitis; F41.9 Anxiety disorder, unspecified; F31.9 Bipolar disorder, unspecified; F20.9 Schizophrenia, unspecified; X58.XXXA Exposure to other specified factors, initial encounter; Y93.89 Activity, other specified; Y92.89 Other specified places as the place of occurrence of the external cause; Y99.8 Other external cause status
CPT/HCPCS: 96372; 99283; J1885

== ENCOUNTER 2020-08-21 12:22 | Emergency (ER) | payer MEDICAID ==
[~2020-08-21] VITALS: Ht 182.9 cm; Wt 85.7 kg
[2020-08-21 12:22] VITALS: BP 115/82
[~2020-08-21 12:22] MED LIST changes: +AMOX1TAB61 PO; +BENZ57SP MM; +IBUP600T16 PO
[2020-08-21] MEDS ORDERED: LIDOCAINE 2% VISCOUS 15 ML SOLUTION. SWSW ONE (13:00)
[2020-08-21] MEDS ORDERED: LIDO20SO10 MM (13:11)
--- NOTE | 2020-08-21 13:11 | PHYS DOC ---
Past History Past Medical History: Anxiety, Bipolar, Depression, Hypertension, Schizophrenia Additional Past Medical Histor: PTSD (GENTRY KAUR APRN) Past Surgical History: Other Additional Past Surgical Histo: gastric sleeve (GENTRY KAUR APRN) Smoking: Non-smoker Alcohol Use: None Drug Use: None (GENTRY KAUR APRN) General Adult EDM: Chief Complaint: DENTAL PROBLEM HPI: HPI: Patient is a 44-year-old male who presents with ulceration to right side of tongue. Patient states "I have been getting these for a few years and they usually go away after a day, but this is lasted for 9 days". Patient reports has been taking ibuprofen, using baking soda, salt water rinses, Orajel with no relief. Patient reports pain is a burning sensation. Patient reports that is difficult to eat or drink because of the burning. Patient has a history of anxiety, depression, substance abuse. (GENTRY KAUR APRN) Review of Systems: Review of Systems: Constitutional: Denies fever or chills Eyes: Denies change in visual acuity HENT: Denies nasal congestion or sore throat Respiratory: Denies cough or shortness of breath Cardiovascular: Denies chest pain or edema GI: Denies abdominal pain, nausea, vomiting, bloody stools or diarrhea : Denies dysuria Musculoskeletal: Denies back pain or joint pain Integument: Painful, ulceration to right side of tongue Neurologic: Denies headache, focal weakness or sensory changes Endocrine: Denies polyuria or polydipsia Lymphatic: Denies swollen glands Psychiatric: Denies depression or anxiety (GENTRY KAUR APRN) Current Medications: Current Meds: Current Medications Medications (Trade) Dose Ordered Sig/Curt Start Time Stop Time Status Last Admin Dose Admin Lidocaine HCl (Viscous Lidocaine) 15 ml 1X ONCE 08/21/20 13:00 08/21/20 13:01 UNV (GENTRY KAUR APRN) Allergies: Allergies: Allergies Coded Allergies Type Severity Reaction Last Updated Verified No Known Drug Allergies 04/12/18 No (GENTRY KAUR APRN) Physical Exam: PE: Constitutional: Well developed, well nourished, no acute distress, non-toxic appearance. [] HENT: Normocephalic, ulcerative lesion to right side of tongue, no facial swelling noted Eyes: PERRLA, EOMI, conjunctiva normal, no discharge. [] Neck: Normal range of motion, no tenderness, supple, no stridor. [] Cardiovascular:Heart rate regular rhythm, no murmur [] Lungs & Thorax: Bilateral breath sounds clear to auscultation [] Abdomen: Bowel sounds normal, soft, no tenderness, no masses, no pulsatile masses. [] Skin: Warm, dry, no erythema, no rash. [] Back: No tenderness, no CVA tenderness. [] Extremities: No tenderness, no cyanosis, no clubbing, ROM intact, no edema. [] Neurologic: Alert and oriented X 3, normal motor function, normal sensory function, no focal deficits noted. [] Psychologic: Affect normal, judgement normal, mood normal. [] (GENTRY KAUR APRN) Current Patient Data: Vital Signs: Vital Signs Date Time Temp Pulse Resp B/P (MAP) Pulse Ox O2 Delivery O2 Flow Rate FiO2 08/21/20 12:22 97.2 88 28 115/82 (93) 100 Room Air (GENTRY KAUR APRN) EKG: EKG: [] (GENTRY KAUR APRN) Radiology/Procedures: Radiology/Procedures: [] (GENTRY KAUR APRN) Heart Score: C/O Chest Pain: No Risk Factors: Risk Factors: DM, Current or recent (<one month) smoker, HTN, HLP, family history of CAD, obesity. Risk Scores: Score 0 - 3: 2.5% MACE over next 6 weeks - Discharge Home Score 4 - 6: 20.3% MACE over next 6 weeks - Admit for Clinical Observation Score 7 - 10: 72.7% MACE over next 6 weeks - Early Invasive Strategies (GENTRY KAUR APRN) Course & Med Decision Making: Course & Med Decision Making Pertinent Labs and Imaging studies reviewed. (See chart for details) [] Patient presents emergency room for ulceration to the right side of his tongue. Patient states he has had ulceration here in the past, but usually resolves within a day or 2. Patient reports the ulceration has been present for 9 days. Patient reports he is having trouble drinking and eating due to the burning pain. Patient has been using Orajel, ibuprofen at home for pain relief with no success. No facial swelling. No abscess. Patient is able to maintain secretions. To viscous lidocaine ordered to apply to the area for pain relief. Patient needs to follow-up with ENT for further evaluation and management. I gave patient referral for ENT. Patient is okay with this plan and will follow up with ENT. (GENTRY KAUR APRN) Myrna Disclaimer: Myrna Disclaimer: This electronic medical record was generated, in whole or in part, using a voice recognition dictation system. (GENTRY KAUR APRN) Attending Co-Sign The patient was seen and interviewed as well as examined at the bedside. The chart was reviewed. The case was discussed. Agree with the plan of care. (CHONG HOPSON DO) Departure Departure: Impression: Primary Impression: Aphthous ulcer of tongue Disposition: HOME / SELF CARE / HOMELESS Condition: STABLE Referrals: AYLIN DELGADO MD (PCP) Patient Instructions: Oral Ulcers Additional Instructions: You were seen in the emergency room for a ulcer to the right side of your tongue. You were given vicious lidocaine to help with the pain. Continue to use Orajel and lidocaine home to the area for help with pain relief. Please follow-up with ENT for further evaluation. Return emergency room with worsening symptoms or concerns. ENT Dr. Swartz [address] [place] [address] EMERGENCY DEPARTMENT GENERAL DISCHARGE INSTRUCTIONS Thank you for coming to [facility] (ED) today and trusting us with you care. We trust that you had a positivie experience in our Emergency Department. If you wish to speak to the department management, you may call the director at [phone]. YOUR FOLLOW UP INSTRUCTIONS ARE FOLLOWS: 1. Do you have a private Doctor? If you do not have a private doctor, please ask for a resource list of physicians or clinics that may be able to assist you with follow up care. 2. The Emergency Physician has interpreted your x-rays. The X-Ray specialist will also review them. If there is a change in the findings, you will be notified in 48 hours when at all possible. 3. A lab test or culture has been done, your results will be reviewed and you will be notified if you need a change in treatment. ADDITIONAL INSTRUCTIONS AND INFORMATION: 1. Your care today has been supervised by a physician who is specially trained in emergency care. Many problems require more than one evaluation for a complete diagnosis and treatment. We recommend that you schedule your follow up appointment as recommended to ensure complete treatment of you illness or injury. If you are unable to obtain follow up care and continue to have a problem, or if your condition worsens, we recommend that you return to the ED. 2. We are not able to safely determine your condition over the phone nor are we able to give sound medical advice over the phone. For these safety reasons, if you call for medical advice we will ask you to come to the ED for further evaluation. 3. If you have any questions regarding these discharge instructions please call the ED at [phone]. SAFETY INFORMATION: In the interest of safety, wellness, and injury prevention; we encourage you to wear your sealbelt, if you smoke; quite smoking, and we encourage family to use a protective helmet for bicycling and other sporting events that present an increased risk for head injury. IF YOUR SYMPTOMS WORSEN OR NEW SYMPTOMS DEVELOP, OR YOU HAVE CONCERNS ABOUT YOUR CONDITION; OR IF YOUR CONDITION WORSENS WHILE YOU ARE WAITING FOR YOUR FOLLOW UP APPOINTMENT; EITHER CONTACT YOUR PRIMARY CARE DOCTOR, THE PHYSICIAN WHOSE NAME AND NUMBER YOU WERE GIVEN, OR RETURN TO THE ED IMMEDIATELY. Scripts Lidocaine HCl (Lidocaine HCl Viscous) 15 Ml Solution 15 ML MM QIDPRN PRN for PAIN for 5 Days, [facility] Prov: GENTRY KAUR APRN 08/21/20 GENTRY KAUR APRN Aug 21, 2020 13:11 CHONG HOPSON DO Aug 21, 2020 14:38
== END 2020-08-21 13:17 | disposition home or self-care (01) ==
LOC: ER 12:22
DX: K12.0 Recurrent oral aphthae (principal); F41.9 Anxiety disorder, unspecified; F31.9 Bipolar disorder, unspecified; I10 Essential (primary) hypertension; F20.9 Schizophrenia, unspecified; F43.10 Post-traumatic stress disorder, unspecified
CPT/HCPCS: 99282

== ENCOUNTER 2020-11-10 20:06 | Emergency (ER) | payer MEDICAID, OTHER ==
[~2020-11-10] VITALS: Ht 170.2 cm; Wt 76.0 kg
[~2020-11-10 20:06] MED LIST changes: +LIDO20SO10 MM
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
[2020-11-10 22:06] VITALS: BP 139/90
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
== END 2020-11-10 21:22 | disposition home or self-care (01) ==
LOC: ER 20:06
DX: S00.83XA Contusion of other part of head, initial encounter (principal); S20.219A Contusion of unspecified front wall of thorax, initial encounter; I10 Essential (primary) hypertension; V43.52XA Car driver injured in collision with other type car in traffic accident, initial encounter; Y93.89 Activity, other specified; Y92.89 Other specified places as the place of occurrence of the external cause; Y99.8 Other external cause status
CPT/HCPCS: 71046; 99283

== ENCOUNTER 2021-07-03 05:54 | Emergency (ER) | payer MEDICAID, OTHER ==
[~2021-07-03] VITALS: Ht 182.9 cm; Wt 93.4 kg
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
[2021-07-03 06:10] VITALS: BP 137/97
[2021-07-03] MEDS ORDERED: IBUPROFEN 600 MG TABLET. PO ONE (07:00)
[2021-07-03] MEDS ORDERED: CETIRIZINE HCL 10 MG TABLET PO ONE (07:00)
== END 2021-07-03 06:30 | disposition home or self-care (01) ==
LOC: ER 05:54
DX: H92.01 Otalgia, right ear (principal)
CPT/HCPCS: 99283

== ENCOUNTER 2021-08-02 21:42 | Emergency (ER) | payer MEDICAID ==
[~2021-08-02] VITALS: Ht 182.9 cm; Wt 93.4 kg
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
[2021-08-02 21:59] VITALS: BP 145/90
[2021-08-02] MEDS ORDERED: KETOROLAC 60 MG/2 ML VIAL. IM ONE (22:15)
--- NOTE | 2021-08-02 22:45 | RAD ---
XR FOOT_LEFT 3 VIEWS 08/02/2021 9:56 PM INDICATION: Injury, swelling and midfoot COMPARISON: None available. TECHNIQUE: 3 views of the left foot are provided. FINDINGS/ IMPRESSION: There is no acute fracture or dislocation. Joint spaces are maintained. Bone mineralization is within normal limits. Focal dorsal soft tissue swelling is identified within the mid foot . There is no sof t tissue gas or osseous erosion. No radiopaque foreign body. Electronically signed by: Odalys Murray MD (08/02/2021 10:42 PM) [facility]
== END 2021-08-03 00:01 | disposition home or self-care (01) ==
LOC: ER 21:45
DX: S93.602A Unspecified sprain of left foot, initial encounter (principal); F31.9 Bipolar disorder, unspecified; X58.XXXA Exposure to other specified factors, initial encounter; Y93.55 Activity, bike riding; Y92.89 Other specified places as the place of occurrence of the external cause; Y99.8 Other external cause status
CPT/HCPCS: 73630; 96372; 99283; J1885